=== PATIENT | male | born 1975 | race African-American/Black ===

== ENCOUNTER 2016-06-22 10:01 | Emergency (ER) | payer OTHER ==
--- NOTE | 2016-06-22 10:36 | ED Physician Chart ---
Chief Complaint/HPI - Patient Information Date Seen:: 06/22/16 Time Seen:: 10:30 Chief Complaint:: cough History of Present Illness:: Patient hospitalized for 7 days starting May 06 for pneumonia. Went to PCP's office this am for rechech where had cough productive of pink liquid. Earlier this am had drunk pink (strawberry) enterex. Both INLAYER and patient's initially thought patient was coughing up blood so INLAYER directed them to come here. Allergies:: Allergies Allergy/AdvReac Type Severity Reaction Status Date / Time No Known Allergies Allergy Verified 06/22/16 10:17 Vitals:: Vital Signs - 8 hr 06/22/16 10:19 Temp 98.0 F HR 131 RR 22 BP 130/78 O2 Sat % 97 Historian:: Patient, Family Member Review:: Nurse's Note Reviewed Review of Systems - Review of Systems General/Constitutional: No fever Skin: No skin lesions Head: No headache Eyes: No loss of vision ENT: No earache, No sore throat Cardio Vascular: No chest pain Pulmonary: Cough GI: No nausea, No vomiting G/U: No dysuria Musculoskeletal: No bone or joint pain, No muscle pain Psychiatric: No prior psych history Hematopoietic: No bruising, No lymphadenopathy Allergic/Immuno: No urticaria Neurological: No syncope, No weakness Past Medical History - Past Medical History Past Medical History: HTN, DM Family History: Diabetes Melitus, HTN Social History: Non Smoker, No Alcohol Surgical History: None Psychiatricy History: None Medication: Reviewed Family Medical History - Family Member Mother Age: 60 Ethnicity: Non- Living Status: Still Living Hx Family Hypertension: Yes Physical Exam - Physical Examination General/Constitutional: Well-developed, well-nourished, Alert, No distress Head: Atraumatic Eyes: Lids, conjuctiva normal, PERRL Skin: Nl inspection, No rash, No skin lesions, No ecchymosis, Well hydrated ENMT: External ears, nose nl, TM canals nl, Nasal exam nl, Lips, teeth, gums nl , Oropharynx nl, Tonsils nl Neck: No nuchal rigidity Respiratory: Nl effort/Exclusion Other Respiratory comments:: 1/4 right mid and right basilar rales Cardio Vascular: RRR GI: No tenderness/rebounding/guarding : No CVA tenderness Extremities: Normal digits & nails Neuro/Psych: No focal deficits Labs/Radiology/EKG Results - Lab Results Results: Laboratory Results - last 24 hr 06/22/16 06/22/16 10:38 10:38 WBC 11.0 H RBC 4.61 Hgb 12.0 L Hct 36.9 L MCV 80.0 MCH 25.9 L MCHC Differential 32.4 RDW 12.5 Plt Count 373 MPV 8.0 Neutrophils % 65.9 Lymphocytes % 22.3 Monocytes % 11.1 H Eosinophils % 0.4 Basophils % 0.3 Sodium 131 L Potassium 3.7 Chloride 93 L Carbon Dioxide 29.0 Anion Gap 12.7 BUN 11 Creatinine 0.8 Est GFR ( Amer) > 60.0 Est GFR (Non-Af Amer) > 60.0 BUN/Creatinine Ratio 13.8 Glucose 310 H Calcium 9.3 - Radiology Results Results: CXR showed large right pleural effusion Assessment - Assessment General Assessment: Urged patient to be admitted here but patient and said they wanted to go to [facility]. Patient was in no respiratory distress so signed out AMA. ED Septic Shock - . Is Septic Shock (SBP<90, OR Lactate>4 mmol\L) present?: No - <6hrs of presentation: Vital Signs: Vital Signs - 8 hr 06/22/16 10:19 Temp 98.0 F HR 131 RR 22 BP 130/78 O2 Sat % 97 Reassessment (Disposition) - Reassessment Reassessment Condition:: Unchanged - Diagnosis Diagnosis:: right pleural effusion; diabetes; hyperglycemia - Aftercare/Follow up Instructions Aftercare/Follow-Up Instructions:: Refer to Discharge Instructions - Patient Disposition Discharge/Transfer:: Against Medical Advice Condition at Disposition:: Stable, Unchanged
[2016-06-22 10:43] LABS: % BASOPHILS 0.3 % (0.0-2.0); % EOSINOPHILS 0.4 % (0.0-5.0); % LYMPHOCYTES 22.3 % (20.0-50.0); % MONOCYTES 11.1 % (2.0-10.0); % NEUTROPHILS 65.9 % (40.0-80.0); HEMATOCRIT 36.9 % (39.0-49.0); MEAN CORPUSCULAR HEMOGLOBIN 25.9 pg (26.0-30.0); MEAN CORPUSCULAR HGB CONC 32.4 pg (28.0-36.0); NEUTROPHILE ABSOLUTE 7.3 Th/cmm (1.8-8.0); PLATELET COUNT 373 Th/cmm (150-400); RED BLOOD COUNT 4.61 Mil/cmm (4.30-5.70); RED CELL DISTRIBUTION WIDTH 12.5 % (11.5-20.0)
[2016-06-22 10:58] LABS: ANION GAP 12.7 (7.0-16.0); BUN - UREA NITROGEN 11 mg/dL (7-25); BUN/CREATININE RATIO 13.8; CALCIUM SERUM 9.3 mg/dL (8.6-10.3); CHLORIDE 93 mEq/L (98-107); CREATININE - SERUM 0.8 mg/dL (0.7-1.3); GLUCOSE 310 mg/dL (70-105); POTASSIUM SERUM 3.7 mEq/L (3.5-5.1); SODIUM SERUM 131 mEq/L (136-145)
--- NOTE | 2016-06-22 14:07 | Diagnostic Imaging Report ---
Portable chest x-ray HISTORY: Cough There is a large region of opacification involving the right lung. A mass cannot be excluded. A CT scan is advised for further assessment and evaluation. Pleural reaction also noted within the right hemithorax. The heart size is normal. IMPRESSION: 1. Relatively large region of opacification involving the right hemithorax. Findings may be associated with a parenchymal pulmonary mass. He scan is recommended for further assessment and evaluation.
== END 2016-06-22 13:05 | disposition left against medical advice (07) ==
LOC: ER 10:01
DX: J90 Pleural effusion, not elsewhere classified (principal); E11.65 Type 2 diabetes mellitus with hyperglycemia; I10 Essential (primary) hypertension
CPT/HCPCS: 36415-UA; 71010-TC; 80048-TC; 83036-90; 85025-TC